=== PATIENT | female | born 1995 | race Two or more races ===

== ENCOUNTER → 2019-05-11 | Outpatient (CLI) | payer OTHER ==
[2019-05-11 10:46] LABS: ABSOLUTE LYMPHOCYTES (AUTO) 1.3 10^3/uL (0.5-4.7); ABSOLUTE MONOCYTES (AUTO) 0.4 10^3/uL (0.1-1.4); ABSOLUTE NEUT (AUTO) 4.5 10^3/uL (1.7-8.2); BASOPHILS % (AUTO) 0.5 % (0-2); EOSINOPHILS % (AUTO) 0.8 % (0-6); HEMATOCRIT 43.5 % (36.0-47.0); HEMOGLOBIN 14.9 g/dL (12.0-15.5); LYMPHOCYTES % (AUTO) 20.1 % (13-45); MEAN CORPUSCULAR HEMOGLOBIN 31.1 pg (27.0-33.4); MEAN CORPUSCULAR HGB CONC 34.2 g/dL (32.0-36.0); MEAN CORPUSCULAR VOLUME 91 fl (80-97); MONOCYTES % (AUTO) 6.5 % (3-13); PLATELET COUNT 246 10^3/uL (150-450); RED CELL DISTRIBUTION WIDTH 12.6 % (11.5-14.0); SEGMENTED NEUTROPHILS % (AUTO) 72.1 % (42-78); TOTAL CELLS COUNTED % (AUTO) 100 %; WHITE BLOOD COUNT 6.3 10^3/uL (4.0-10.5)
[2019-05-11 10:57] LABS: ALANINE AMINOTRANSFERASE 26 U/L (9-52); ALBUMIN 4.4 g/dL (3.5-5.0); ALKALINE PHOSPHATASE 56 U/L (38-126); ANION GAP 9 (5-19); ASPARTATE AMINO TRANSFERASE 22 U/L (14-36); BILIRUBIN,DIRECT 0.1 mg/dL (0.0-0.4); BILIRUBIN,TOTAL 0.4 mg/dL (0.2-1.3); BLOOD UREA NITROGEN 7 mg/dL (7-20); CALCIUM 9.5 mg/dL (8.4-10.2); CARBON DIOXIDE 26 mmol/L (22-30); CHLORIDE 103 mmol/L (98-107); CHOLESTEROL 173.42 mg/dL (0-200); GLUCOSE 93 mg/dL (75-110); POTASSIUM 4.2 mmol/L (3.6-5.0); TOTAL PROTEIN 7.7 g/dL (6.3-8.2); TRIGLYCERIDES 74 mg/dL (<150)
[2019-05-11 11:07] LABS: DIRECT LDL 96 mg/dL (<100)
[2019-05-11 11:12] LABS: FREE T4 (FREE THYROXINE) 1.27 ng/dL (0.78-2.19)
[2019-05-11 11:26] LABS: THYROID STIMULATING HORMONE 0.94 uIU/mL (0.47-4.68)
== END ==
LOC: LAB 10:22
PROVIDERS: ATTEND Physician Assistant
DX: Z79.899 Other long term (current) drug therapy (principal)
CPT/HCPCS: 36415; 80053; 80061; 82306; 84439; 84443; 85025

== ENCOUNTER 2019-05-16 11:50 | Emergency (ER) | payer OTHER ==
[2019-05-16] MEDS ORDERED: LORAZEPAM 1 MG TABLET PO ONE (12:12)
--- NOTE | 2019-05-16 12:15 | ER Document Report ---
ED Medical Screen (RME) - General Chief Complaint: Palpitations Stated Complaint: SHORTNESS OF BREATH Time Seen by Provider: 05/16/19 12:07 Primary Care Provider: DAVID ESPARZA PA-C [Primary Care Provider] - Follow up as needed TRAVEL OUTSIDE OF THE [place] IN LAST 30 DAYS: No - HPI Notes: 05/16/19 12:13 Patient is a 24-year-old female with no significant past medical history aside from her bleeding that she may have anxiety and depression who presents complaining of feeling palpitations over the past week that have increased today. Patient states that she started having some chest pressure in the midsternal area as well that does not radiate. Pt has associated sob as well. Patient states that after her heart started racing she started to become very anxious and emotional. Patient does admit to oral control pills. Denies any prolonged immobilization, distance travel, recent surgery/trauma, personal cancer history, smoking, or previous DVT/PE. Denies [place], fever, neck pain, URI, n/v/d, Abd pain, dysuria, back pain, or rash. I have treated and performed a rapid initial assessment of this patient. A comprehensive ED assessment and evaluation of the patient, analysis of test results and completion of medical decision making process will be conducted by additional ED providers. PHYSICAL EXAMINATION: GENERAL: Well-appearing, well-nourished and in no acute distress. A&Ox4. Answers questions appropriately. LUNGS: Breath sounds clear to auscultation bilaterally and equal. No wheezes rales or rhonchi. HEART: Regular rate and rhythm without murmurs, rubs, gallops. Extremities: No cyanosis, clubbing, or edema b/l. Rick negative bilaterally. No lower extremity asymmetry. NEUROLOGICAL: Normal speech, normal gait. PSYCH: Anxious and tearful - Related Data Allergies/Adverse Reactions: azithromycin [From Zithromax] Allergy (Verified 05/16/19 12:04) codeine Allergy (Verified 05/16/19 12:04) Penicillins Allergy (Verified 05/16/19 12:04) Physical Exam - Vital signs Vitals: Temp Pulse Resp BP Pulse Ox 98.6 F 113 H 18 120/83 100 05/16/19 11:58 05/16/19 11:58 05/16/19 11:58 05/16/19 11:58 05/16/19 11:58 Course - Vital Signs Vital signs: Temp Pulse Resp BP Pulse Ox 98.6 F 113 H 18 120/83 100 05/16/19 11:58 05/16/19 11:58 05/16/19 11:58 05/16/19 11:58 05/16/19 11:58 Doctor's Discharge - Discharge Referrals: DAVID ESPARZA PA-C [Primary Care Provider] - Follow up as needed
[2019-05-16 12:48] LABS: ABSOLUTE LYMPHOCYTES (AUTO) 1.7 10^3/uL (0.5-4.7); ABSOLUTE MONOCYTES (AUTO) 0.4 10^3/uL (0.1-1.4); ABSOLUTE NEUT (AUTO) 6.4 10^3/uL (1.7-8.2); BASOPHILS % (AUTO) 0.4 % (0-2); EOSINOPHILS % (AUTO) 0.4 % (0-6); HEMOGLOBIN 15.2 g/dL (12.0-15.5); LYMPHOCYTES % (AUTO) 19.5 % (13-45); MEAN CORPUSCULAR HEMOGLOBIN 30.8 pg (27.0-33.4); MEAN CORPUSCULAR HGB CONC 33.8 g/dL (32.0-36.0); MEAN CORPUSCULAR VOLUME 91 fl (80-97); MONOCYTES % (AUTO) 4.2 % (3-13); PLATELET COUNT 312 10^3/uL (150-450); RED BLOOD COUNT 4.92 10^6/uL (3.72-5.28); RED CELL DISTRIBUTION WIDTH 12.4 % (11.5-14.0); SEGMENTED NEUTROPHILS % (AUTO) 75.5 % (42-78); TOTAL CELLS COUNTED % (AUTO) 100 %; WHITE BLOOD COUNT 8.5 10^3/uL (4.0-10.5)
[2019-05-16 13:01] LABS: APPEARANCE,URINE SLIGHTLY-CLOUDY; BILIRUBIN,URINE NEGATIVE (NEGATIVE); COLOR,URINE YELLOW; GLUCOSE, URINE NEGATIVE (NEGATIVE); KETONES,URINE 80 mg/dL (NEGATIVE); LEUKOCYTE ESTERASE,URINE NEGATIVE (NEGATIVE); NITRITE,URINE NEGATIVE (NEGATIVE); PROTEIN,URINE NEGATIVE (NEGATIVE); URINE SPECIFIC GRAVITY 1.019; UROBILINOGEN,URINE NEGATIVE mg/dL (<2.0)
--- NOTE | 2019-05-16 13:18 | RADIOLOGY REPORT (SQ) ---
EXAM DESCRIPTION: CHEST 2 VIEWS COMPLETED DATE/TIME: 05/16/2019 12:59 pm REASON FOR STUDY: palp, sob, cp COMPARISON: None. EXAM PARAMETERS: NUMBER OF VIEWS: two views TECHNIQUE: Digital Frontal and Lateral radiographic views of the chest acquired. RADIATION DOSE: NA LIMITATIONS: none FINDINGS: LUNGS AND PLEURA: No opacities, masses or pneumothorax. No pleural effusion. MEDIASTINUM AND HILAR STRUCTURES: No masses or contour abnormalities. HEART AND VASCULAR STRUCTURES: Heart normal size. No evidence for failure. BONES: No acute findings. HARDWARE: None in the chest. OTHER: No other significant finding. IMPRESSION: NO ACUTE RADIOGRAPHIC FINDING IN THE CHEST. TECHNICAL DOCUMENTATION: JOB ID: [id number] [facility]- All Rights Reserved Reading location - IP/workstation name: [email or web address]
[2019-05-16 14:02] LABS: ALANINE AMINOTRANSFERASE 24 U/L (9-52); ALBUMIN 4.6 g/dL (3.5-5.0); ALKALINE PHOSPHATASE 59 U/L (38-126); ANION GAP 11 (5-19); ASPARTATE AMINO TRANSFERASE 24 U/L (14-36); BILIRUBIN,DIRECT 0.2 mg/dL (0.0-0.4); BILIRUBIN,TOTAL 0.5 mg/dL (0.2-1.3); BLOOD UREA NITROGEN 7 mg/dL (7-20); CALCIUM 9.9 mg/dL (8.4-10.2); CARBON DIOXIDE 23 mmol/L (22-30); CHLORIDE 104 mmol/L (98-107); GLUCOSE 84 mg/dL (75-110); TOTAL PROTEIN 7.8 g/dL (6.3-8.2)
[2019-05-16 14:10] LABS: POTASSIUM 4.4 mmol/L (3.6-5.0)
[2019-05-16] MEDS ORDERED: NORMAL SALINE 1000 ML 1,000 ML IV ONE (14:33)
--- NOTE | 2019-05-16 15:07 | ER Document Report ---
ED General - General Chief Complaint: Palpitations Stated Complaint: SHORTNESS OF BREATH Time Seen by Provider: 05/16/19 12:07 Primary Care Provider: DAVID ESPARZA PA-C [PHYSICIAN [employer] AND SK[employer] COLORER] - Follow up as needed Notes: Patient is a 24-year-old female presents to the emergency department with a chief complaint of chest palpitations. Patient states she woke up around 10 AM this morning and felt short of breath. Patient states that at that time she felt like her heart was beating fast. Patient states she felt anxious. Patient states this morning when she was having the symptoms she felt a squeezing to the left side of her chest. Patient states she has been asked bearing seen increased stress and feelings of anxiousness over the past week. Patient also reports dizziness and generalized weakness. Patient states she was recently treated for bacterial vaginosis by [facility] and was placed on clindamycin which she did finish over the weekend. Patient states she continues to have vaginal itching as well as a white vaginal discharge with an odor. Patient states she has had a decreased appetite. Patient denies abdominal pain, nausea, vomiting, diarrhea or fever. TRAVEL OUTSIDE OF THE [place] IN LAST 30 DAYS: No - Related Data Allergies/Adverse Reactions: azithromycin [From Zithromax] Allergy (Verified 05/16/19 12:04) codeine Allergy (Verified 05/16/19 12:04) Penicillins Allergy (Verified 05/16/19 12:04) Past Medical History - General Information source: Patient - Social History Smoking Status: Never Smoker Frequency of alcohol use: None Drug Abuse: None Lives with: Spouse/Significant other Family History: None Patient has suicidal ideation: No Patient has homicidal ideation: No - Past Medical History Cardiac Medical History: Reports: None Pulmonary Medical History: Reports: None EENT Medical History: Reports: None Neurological Medical History: Reports: None Endocrine Medical History: Reports: None Renal/ Medical History: Reports: Hx Kidney Stones. Denies: Hx Peritoneal Dialysis Malignancy Medical History: Reports: None GI Medical History: Reports: None Musculoskeletal Medical History: Reports None Skin Medical History: Reports None Psychiatric Medical History: Reports: None Traumatic Medical History: Reports: None Infectious Medical History: Reports: None Surgical Hx: Negative Review of Systems - Review of Systems Constitutional: See HPI EENT: No symptoms reported Cardiovascular: See HPI Respiratory: See HPI Gastrointestinal: No symptoms reported Genitourinary: No symptoms reported Female Genitourinary: See HPI Musculoskeletal: No symptoms reported Skin: No symptoms reported Hematologic/Lymphatic: No symptoms reported Neurological/Psychological: No symptoms reported Physical Exam - Vital signs Vitals: Temp Pulse Resp BP Pulse Ox 98.6 F 113 H 18 120/83 100 05/16/19 11:58 05/16/19 11:58 05/16/19 11:58 05/16/19 11:58 05/16/19 11:58 Interpretation: Tachycardic - Notes Notes: GENERAL: Well-appearing, well-nourished and in no acute distress. HEAD: Atraumatic, normocephalic. EYES: Pupils equal round and reactive to light, extraocular movements intact, sclera anicteric, conjunctiva are normal. ENT: TMs normal, nares patent, oropharynx clear without exudates. Moist mucous membranes. NECK: Normal range of motion, supple without lymphadenopathy or JVD. LUNGS: Breath sounds clear to auscultation bilaterally and equal. No wheezes rales or rhonchi. HEART: Regular rate and rhythm without murmurs, rubs or gallops. Non- reproducible chest pain. ABDOMEN: Soft, nontender, normoactive bowel sounds. No guarding, no rebound. No masses appreciated. BACK: No cervical, thoracic, lumbar midline tenderness. No saddle anesthesia, normal distal neurovascular exam. No CVA tenderness. GENITOURINARY: Deferred. EXTREMITIES: Normal range of motion, no pitting or edema. No clubbing or cyanosis. NEUROLOGICAL: Cranial nerves II through XII grossly intact. Normal speech, normal gait. PSYCH: Normal mood, normal affect. SKIN: Warm, Dry, normal turgor, no rashes or lesions noted. Course - Re-evaluation Re-evalutation: 05/16/19 15:04 Upon initial examination patient is resting comfortably on stretcher. Patient reports she is not currently having any shortness of breath, chest pain or palpitations. Will obtain orthostatic vital signs and perform a pelvic examination as the patient continues to have vaginal discharge. We will give IV hydration. Patient has had tachycardia as well as chest pain. Patient is on oral control pills. I will add on a d-dimer. 05/16/19 17:05 Patient d-dimer came back as negative. I will plan to discharge the patient as her lab results were unremarkable and she has been asymptomatic since arriving to the emergency department. Patient states that when she gets up and moves around she feels like her heart rate goes up. Patient did reposition herself on the stretcher and her heart rate increased to 127. Patient states she has been battling a lot of anxiety. Patient states she feels like she may have had a panic attack earlier this morning. Patient states she gets a lot of anxiety when going out in public. Patient states she does have a follow-up with her primary care physician on Monday. I did inform the patient to follow-up with her primary care physician as she may require a cardiac follow-up and a continuous electronic device monitor to be placed for 24 to 48 hours to evaluate for her palpitations. Patient given strict return precautions. 05/16/19 19:53 Gonorrhea and Chlamydia cultures were negative. Patient does not require antibiotics for this. - Vital Signs Vital signs: Temp Pulse Resp BP Pulse Ox 98.6 F 113 H 22 H 105/78 99 05/16/19 11:58 05/16/19 11:58 05/16/19 18:01 05/16/19 18:00 05/16/19 18:01 - Laboratory Result Diagrams: 05/16/19 12:31 05/16/19 13:33 Laboratory results interpreted by me: 05/16/19 12:31 Urine Ketones 80 H Urine Blood SMALL H 05/16/19 15:05 Laboratory 05/16/19 05/16/19 05/16/19 12:31 12:31 12:31 WBC 8.5 RBC 4.92 Hgb 15.2 Hct 45.0 MCV 91 MCH 30.8 MCHC 33.8 RDW 12.4 Plt Count 312 Seg Neutrophils % 75.5 Lymphocytes % 19.5 Monocytes % 4.2 Eosinophils % 0.4 Basophils % 0.4 Absolute Neutrophils 6.4 Absolute Lymphocytes 1.7 Absolute Monocytes 0.4 Absolute Eosinophils 0.0 Absolute Basophils 0.0 Sodium Cancelled Potassium Cancelled Chloride Cancelled Carbon Dioxide Cancelled Anion Gap Cancelled BUN Cancelled Creatinine Cancelled Est GFR ( Amer) Cancelled Est GFR (Non-Af Amer) Cancelled Glucose Cancelled Calcium Cancelled Magnesium Cancelled Total Bilirubin Cancelled Direct Bilirubin Cancelled Neonat Total Bilirubin Cancelled Neonat Direct Bilirubin Cancelled Neonat Indirect Bili Cancelled AST Cancelled ALT Cancelled Alkaline Phosphatase Cancelled Troponin I Cancelled Total Protein Cancelled Albumin Cancelled TSH Urine Color Urine Appearance Urine pH Ur Specific Freeman Urine Protein Urine Glucose (UA) Urine Ketones Urine Blood Urine Nitrite Urine Bilirubin Urine Urobilinogen Ur Leukocyte Esterase Urine WBC (Auto) Urine RBC (Auto) Urine Bacteria (Auto) Squamous Epi Cells Auto Urine Mucus (Auto) Urine Ascorbic Acid Urine HCG, Qual 05/16/19 05/16/19 05/16/19 12:31 12:31 13:33 WBC RBC Hgb Hct MCV MCH MCHC RDW Plt Count Seg Neutrophils % Lymphocytes % Monocytes % Eosinophils % Basophils % Absolute Neutrophils Absolute Lymphocytes Absolute Monocytes Absolute Eosinophils Absolute Basophils Sodium 138.0 Potassium 4.4 Chloride 104 Carbon Dioxide 23 Anion Gap 11 BUN 7 Creatinine 0.68 Est GFR ( Amer) > 60 Est GFR (Non-Af Amer) > 60 Glucose 84 Calcium 9.9 Magnesium 1.8 Total Bilirubin 0.5 Direct Bilirubin 0.2 Neonat Total Bilirubin Not Reportable Neonat Direct Bilirubin Not Reportable Neonat Indirect Bili Not Reportable AST 24 ALT 24 Alkaline Phosphatase 59 Troponin I Total Protein 7.8 Albumin 4.6 TSH Cancelled Urine Color YELLOW Urine Appearance SLIGHTLY-CLOUDY Urine pH 6.0 Ur Specific [place] 1.019 Urine Protein NEGATIVE Urine Glucose (UA) NEGATIVE Urine Ketones 80 H Urine Blood SMALL H Urine Nitrite NEGATIVE Urine Bilirubin NEGATIVE Urine Urobilinogen NEGATIVE Ur Leukocyte Esterase NEGATIVE Urine WBC (Auto) 1 Urine RBC (Auto) 8 Urine Bacteria (Auto) 1+ Squamous Epi Cells Auto 1 Urine Mucus (Auto) MANY Urine Ascorbic Acid NEGATIVE Urine HCG, Qual NEGATIVE 05/16/19 05/16/19 13:33 13:33 WBC RBC Hgb Hct MCV MCH MCHC RDW Plt Count Seg Neutrophils % Lymphocytes % Monocytes % Eosinophils % Basophils % Absolute Neutrophils Absolute Lymphocytes Absolute Monocytes Absolute Eosinophils Absolute Basophils Sodium Potassium Chloride Carbon Dioxide Anion Gap BUN Creatinine Est GFR ( Amer) Est GFR (Non-Af Amer) Glucose Calcium Magnesium Total Bilirubin Direct Bilirubin Neonat Total Bilirubin Neonat Direct Bilirubin Neonat Indirect Bili AST ALT Alkaline Phosphatase Troponin I < 0.012 Total Protein Albumin TSH 0.70 Urine Color Urine Appearance Urine pH Ur Specific Freeman Urine Protein Urine Glucose (UA) Urine Ketones Urine Blood Urine Nitrite Urine Bilirubin Urine Urobilinogen Ur Leukocyte Esterase Urine WBC (Auto) Urine RBC (Auto) Urine Bacteria (Auto) Squamous Epi Cells Auto Urine Mucus (Auto) Urine Ascorbic Acid Urine HCG, Qual - Diagnostic Test Radiology reviewed: Reports reviewed - EKG Interpretation by Me Additional EKG results interpreted by me: 05/16/19 16:41 EKG shows a sinus rhythm with a heart rate of 83. VT interval is 128, QT 348, QTc 409. Patient has a normal axis deviation without ectopy or ST segment kyaw nges in consecutive leads. There is no EKG for comparison. Procedures - Pelvic Exam Pelvic exam Time completed: 16:00 Cultures obtained: Yes Wet prep obtained: Yes Bimanual exam performed: Yes - CM tenderness Witnessed by: David SIN Notes: 05/16/19 External genitalia slightly erythematous without lesions. During the insertion of the speculum patient did experience some discomfort. Patient did have white discharge noted throughout the vaginal vault. I was able to observe the cervix was was unremarkable. Specimens obtained. Discharge - Discharge Clinical Impression: Bacterial vaginosis, Tachycardia, Palpitations, Pelvic pain Condition: Stable Disposition: HOME, SELF-CARE Instructions: Palpitations (Irregular or Rapid Heartrate) ([facility]) Additional Instructions: Today you are seen in the emergency department for chest pain and palpitations. Your EKG was unremarkable and showed a regular rhythm. We did obtain lab work which did not show infection, anemia, alteration in your electrolytes, abnormal thyroid studies, urinary tract infection or an abnormality of the chest x-ray. You do have bacterial vaginosis which is a pelvic infection. I will place you on Flagyl which is an antibiotic that treats this. Do not drink alcohol while on this medication as it can make you extremely ill. Please follow-up with your primary care physician as you may need to have a cardiology follow-up regarding these palpitations. You may require wearing a cardiac monitoring device over a 24 to 48-hour time frame depending on your cardiology recommendations. Please avoid caffeine, nicotine, alcohol, [id number] decongestant or cold pills, diet pills as these can cause palpitations or make them worse. Please rest and drink plenty of fluids to stay hydrated. Please return to the emergency department if you have persistent lightheadedness, shortness of breath, chest pain swelling of the ankles or any concerning signs or symptoms. Palpitations (Irregular/Rapid Heartrate) Irregular or rapid heartbeat is called "palpitation." To diagnose the cause of palpitation, we have to "catch it in the act" with an EKG. Sinus Tachycardia: This is a rapid (but NORMAL) rhythm that can be due to fever, pain, anxiety, lack of sleep, over-exertion, or drugs. Cold medications, caffeine, and diet pills are particularly likely to cause tachycardia. Usually, all that's required is rest, reassurance, and avoiding caffeine, alcohol, nicotine, and unnecessary medicines. Paroxysmal Atrial Tachycardia (PAT): This abnormally rapid heartbeat is caused by a "short circuit" in the electrical system of the heart. It is not dangerous, unless other heart disease is present. These attacks of PAT may occur occasionally for years. Medication is available for treatment. Paroxysmal Atrial Fibrillation or Atrial Flutter: This is irregular electrical activity in the upper heart chamber. These abnormal rhythms often occur with valve disease or in hearts damaged by hardening of the arteries. These rhythms usually require further testing, for example a cardiac echo. Premature Beats: Extra beats occur more commonly after caffeine, nicotine, alcohol, cold pills, diet pills. Emotional stress or fatigue also provoke them. Extra beats are only dangerous when heart disease is present. They usually need no treatment. If they're frequent, or if evidence of heart disease develops, medication can be given to suppress them. If we were unable to "catch" the palpitations on EKG, you should try to get an EKG immediately if the symptoms begin again. Contact the physician at once if you develop persistent lightheadedness, shortness of breath, chest pain, or swelling of the ankles. Vaginosis, Bacterial Your exam shows you have bacterial vaginosis. This condition is due to an overgrowth of bacteria in the vagina. Symptoms may include vaginal itching or pain, a smelly discharge, and sometimes burning with urination. Normally this is not transmitted by sexual contact. Vaginosis can be treated with oral or topical antibiotics. Metronidazole (Flagyl) pills are usually effective. Topical vaginal creams include Cleocin and Metro-Gel. You should avoid sexual contact until your symptoms are all better. Call the doctor if you develop pelvic pain, fever, or problems with urination, or if you don't improve as expected. Prescriptions: Metronidazole [Flagyl 500 mg Tablet] 500 mg PO BID 7 Days #14 tablet Referrals: DAVID ESPARZA PA-C [PHYSICIAN [employer] AND SKINS [employer]ORER] - Follow up as needed
[2019-05-16 16:15] LABS: BACTERIA (WET MOUNT) 3+ BACTERIA SEEN; EPITHELIALS (WET MOUNT) 3+ EPITHELIALS SEEN; RBCS (WET MOUNT) NO RBCS SEEN; T.VAGINALIS (WET MOUNT) NO TRICHOMONAS SEEN; WBCS (WET MOUNT) 1+ WBCS SEEN; YEAST (WET MOUNT) NO YEAST SEEN
[2019-05-16 17:54] LABS: CHLAM PCR NOT DETECTED (NOT DETECT)
[2019-05-16 18:12] VITALS: BP 105/78
--- NOTE | 2019-05-16 18:18 | EKG REPORT ---
SEVERITY:- NORMAL ECG - SINUS RHYTHM : Confirmed by: Renee Reece MD 16-May-2019 18:17:54
== END 2019-05-16 18:33 | disposition home or self-care (01) ==
LOC: ER 11:50
DX: N76.0 Acute vaginitis (principal); B96.89 Other specified bacterial agents as the cause of diseases classified elsewhere; R00.2 Palpitations; R00.0 Tachycardia, unspecified; R10.2 Pelvic and perineal pain; Z88.6 Allergy status to analgesic agent; Z88.0 Allergy status to penicillin
CPT/HCPCS: 93005; 99285; 96360; 96361; 36415; 87210; 83735; 84443; 85025; 81025; 80053; 81001; 84484; 85379; 87491; 87591; 71046; 93010; J7030

== ENCOUNTER 2019-11-14 21:23 | Emergency (ER) | payer OTHER ==
[2019-11-15 00:02] LABS: ABSOLUTE LYMPHOCYTES (AUTO) 1.8 10^3/uL (0.5-4.7); ABSOLUTE MONOCYTES (AUTO) 0.5 10^3/uL (0.1-1.4); ABSOLUTE NEUT (AUTO) 4.9 10^3/uL (1.7-8.2); BASOPHILS % (AUTO) 0.6 % (0-2); EOSINOPHILS % (AUTO) 0.1 % (0-6); HEMATOCRIT 47.1 % (36.0-47.0); HEMOGLOBIN 15.9 g/dL (12.0-15.5); MEAN CORPUSCULAR HGB CONC 33.8 g/dL (32.0-36.0); MEAN CORPUSCULAR VOLUME 92 fl (80-97); MONOCYTES % (AUTO) 6.3 % (3-13); PLATELET COUNT 257 10^3/uL (150-450); RED BLOOD COUNT 5.14 10^6/uL (3.72-5.28); RED CELL DISTRIBUTION WIDTH 12.4 % (11.5-14.0); TOTAL CELLS COUNTED % (AUTO) 100 %; WHITE BLOOD COUNT 7.3 10^3/uL (4.0-10.5)
[2019-11-15 00:03] LABS: APPEARANCE,URINE CLEAR; BILIRUBIN,URINE NEGATIVE (NEGATIVE); COLOR,URINE YELLOW; GLUCOSE, URINE NEGATIVE (NEGATIVE); KETONES,URINE NEGATIVE (NEGATIVE); LEUKOCYTE ESTERASE,URINE NEGATIVE (NEGATIVE); NITRITE,URINE NEGATIVE (NEGATIVE); PROTEIN,URINE NEGATIVE (NEGATIVE); URINE SPECIFIC GRAVITY 1.005; UROBILINOGEN,URINE NEGATIVE mg/dL (<2.0)
[2019-11-15 00:08] LABS: ALKALINE PHOSPHATASE 68 U/L (38-126); ANION GAP 11 (5-19); ASPARTATE AMINO TRANSFERASE 27 U/L (14-36); BILIRUBIN,DIRECT 0.3 mg/dL (0.0-0.4); BILIRUBIN,TOTAL 0.5 mg/dL (0.2-1.3); BLOOD UREA NITROGEN 11 mg/dL (7-20); CALCIUM 10.1 mg/dL (8.4-10.2); CARBON DIOXIDE 26 mmol/L (22-30); CHLORIDE 103 mmol/L (98-107); CREATINE KINASE 75 U/L (30-135); GLUCOSE 93 mg/dL (75-110); POTASSIUM 3.9 mmol/L (3.6-5.0); TOTAL PROTEIN 8.7 g/dL (6.3-8.2)
[2019-11-15 00:19] LABS: CREATINE KINASE MB 0.31 ng/mL (<4.55)
[2019-11-15 00:20] LABS: TROPONIN I < 0.012 ng/mL
--- NOTE | 2019-11-15 01:52 | ER Document Report ---
ED General - General Chief Complaint: Chest Pain Stated Complaint: CHEST PAINS Time Seen by Provider: 11/15/19 01:52 Primary Care Provider: ISAÍAS RASMUSSEN MD [Primary Care Provider] - Follow up as needed Mode of Arrival: Ambulatory Information source: Patient TRAVEL OUTSIDE OF THE [place] IN LAST 30 DAYS: No - HPI Onset: Yesterday - at 2PM Onset/Duration: Gradual Quality of pain: No pain Severity: Moderate Pain Level: 3 Associated symptoms: Chest pain, Shortness of breath Exacerbated by: Denies Relieved by: Denies Similar symptoms previously: Yes - couple times Recently seen / treated by doctor: No Notes: 24 year old female with a history of GERD and Anxiety here for off and on chest pain since yesterday around 2pm. The patient says she has some mild shortness of breath with the chest pain and some mild muscle/chest wall pain. The patient denies fevers, chills, sweats, nausea, vomiting, cough. The patient says the pain feels like it goes to both shoulders at times. She is not sure of anything that can make it come or go. - Related Data Allergies/Adverse Reactions: azithromycin [From Zithromax] Allergy (Verified 05/16/19 12:04) codeine Allergy (Verified 05/16/19 12:04) Penicillins Allergy (Verified 05/16/19 12:04) Home Medications: control. fish oil supplements. CBD oil Past Medical History - General Information source: Patient - Social History Smoking Status: Never Smoker Frequency of alcohol use: None Drug Abuse: None Family History: None Patient has suicidal ideation: No Patient has homicidal ideation: No - Past Medical History Cardiac Medical History: Reports: None Pulmonary Medical History: Reports: None EENT Medical History: Reports: None Neurological Medical History: Reports: None Endocrine Medical History: Reports: None Renal/ Medical History: Reports: None, Hx Kidney Stones. Denies: Hx Peritoneal Dialysis Malignancy Medical History: Reports: None GI Medical History: Reports: Hx Gastroesophageal Reflux Disease Musculoskeletal Medical History: Reports None Skin Medical History: Reports None Psychiatric Medical History: Reports: Hx Anxiety Past Surgical History: Reports: Hx Oral Surgery - wisdom teeth Review of Systems - Review of Systems Constitutional: No symptoms reported EENT: No symptoms reported Cardiovascular: Chest pain Respiratory: Short of breath Gastrointestinal: No symptoms reported Genitourinary: No symptoms reported Female Genitourinary: No symptoms reported Musculoskeletal: Other - chest wall pain Skin: No symptoms reported Hematologic/Lymphatic: No symptoms reported Neurological/Psychological: No symptoms reported -: Yes All other systems reviewed and negative Physical Exam - Vital signs Vitals: Temp Pulse Resp BP Pulse Ox 98.9 F 90 20 115/71 100 11/14/19 22:23 11/14/19 22:23 11/14/19 22:23 11/14/19 22:23 11/14/19 22:23 - Notes Notes: GENERAL: Well-appearing, well-nourished and in no acute distress. HEAD: Atraumatic, normocephalic. EYES: Pupils equal round and reactive to light, extraocular movements intact, sclera anicteric, conjunctiva are normal. ENT: TMs normal, nares patent, oropharynx clear without exudates. Moist mucous membranes. NECK: Normal range of motion, supple without lymphadenopathy or JVD. LUNGS: Breath sounds clear to auscultation bilaterally and equal. No wheezes rales or rhonchi. HEART: Regular rate and rhythm without murmurs, rubs or gallops. ABDOMEN: Soft, nontender, normoactive bowel sounds. No guarding, no rebound. No masses appreciated. EXTREMITIES: Normal range of motion, no pitting or edema. No clubbing or cyanosis. NEUROLOGICAL: Cranial nerves II through XII grossly intact. Normal speech, normal gait. PSYCH: Normal mood, normal affect. SKIN: Warm, Dry, normal turgor, no rashes or lesions noted. Course - Re-evaluation Re-evalutation: 11/15/19 02:07 The patient likely is having chest pain from anxiety of GERD. She is very low risk for ACS (she has no risk factors and is 24 years old) or PE (she is PERC negative). Patient given a GI Cocktail and she was told to follow up with her PCP. Labs, EKG, Chest Xray Unremarkable. - Vital Signs Vital signs: Temp Pulse Resp BP Pulse Ox 98.9 F 90 20 115/71 100 11/14/19 22:23 11/14/19 22:23 11/14/19 22:23 11/14/19 22:23 11/14/19 22:23 - Laboratory Result Diagrams: 11/14/19 23:40 11/14/19 23:40 Laboratory results interpreted by me: 11/14/19 11/14/19 23:40 23:40 Hgb 15.9 H Hct 47.1 H Total Protein 8.7 H - Diagnostic Test Radiology reviewed: Image reviewed Radiology results interpreted by me: 11/15/19 02:08 No acute process on my read. - EKG Interpretation by Me EKG shows normal: Sinus rhythm, [place], Intervals, QRS Complexes Rate: Normal Rhythm: NSR Discharge - Discharge Clinical Impression: Anxiety Chest pain Qualifiers: Chest pain type: unspecified Qualified Code(s): R07.9 - Chest pain, unspecified Condition: Stable Disposition: HOME, SELF-CARE Instructions: Chest Pain of Unclear Cause ([facility]), Anxiety ([facility]) Additional Instructions: Follow up with your primary care doctor. If you dont have a primary care doctor, follow up with the one listed. Use over the counter [id number] medications to see if this helps your symptoms. Referrals: ISAÍAS RASMUSSEN MD [Primary Care Provider] - Follow up as needed
[2019-11-15] MEDS ORDERED: METOCLOPRAMIDE HCL ORAL SOLN 10 MG/10 ML UDCUP PO ONE (02:09)
[2019-11-15] MEDS ORDERED: LIDOCAINE 2% VISCOUS SOLN 15 ML UDCUP PO ONE (02:09)
[2019-11-15] MEDS ORDERED: MAG HYDROX/AL HYDROX/SIMETH SUSP 30 ML UDCUP PO ONE (02:09)
--- NOTE | 2019-11-15 02:52 | RADIOLOGY REPORT (SQ) ---
EXAM DESCRIPTION: XR CHEST 2 VIEWS COMPLETED DATE/TME: 11/15/2019 01:52 CLINICAL HISTORY: 24 years Female, chest pain COMPARISON: None. NUMBER OF VIEWS/TECHNIQUE: 2, Frontal, Lateral FINDINGS: Increased lung volume, clear parenchyma, normal cardiac silhouette, and intact bony thorax. IMPRESSION: No acute cardiopulmonary findings.
[2019-11-15 06:41] VITALS: BP 112/75
--- NOTE | 2019-11-15 13:01 | EKG REPORT ---
SEVERITY:- NORMAL ECG - SINUS RHYTHM : Confirmed by: Beatriz Crews 15-Nov-2019 13:00:47
== END 2019-11-15 06:30 | disposition home or self-care (01) ==
LOC: ER 21:23
DX: F41.9 Anxiety disorder, unspecified (principal); R07.9 Chest pain, unspecified; R06.02 Shortness of breath; Z88.3 Allergy status to other anti-infective agents; Z88.6 Allergy status to analgesic agent; Z87.442 Personal history of urinary calculi; Z88.0 Allergy status to penicillin; Z79.3 Long term (current) use of hormonal contraceptives
CPT/HCPCS: 93005; 99285; 36415; 82553; 82550; 85025; 80053; 81001; 84484; 71046; 93010; J3490

== ENCOUNTER → 2019-12-03 | Outpatient (CLI) | payer OTHER ==
[2019-12-03 16:52] LABS: AMORPHOUS SEDIMENT,URINE TRACE /HPF; APPEARANCE,URINE CLOUDY; BILIRUBIN,URINE NEGATIVE (NEGATIVE); COLOR,URINE YELLOW; GLUCOSE, URINE NEGATIVE (NEGATIVE); KETONES,URINE NEGATIVE (NEGATIVE); LEUKOCYTE ESTERASE,URINE NEGATIVE (NEGATIVE); NITRITE,URINE NEGATIVE (NEGATIVE); PROTEIN,URINE NEGATIVE (NEGATIVE); URINE SPECIFIC GRAVITY 1.017; UROBILINOGEN,URINE NEGATIVE mg/dL (<2.0)
[2019-12-03 17:13] LABS: FREE T3 2.76 pg/mL (2.77-5.27); FREE T4 (FREE THYROXINE) 0.96 ng/dL (0.78-2.19)
[2019-12-03 17:27] LABS: THYROID STIMULATING HORMONE 1.01 uIU/mL (0.47-4.68)
[2019-12-03 17:58] LABS: ALBUMIN 3.9 g/dL (3.5-5.0); ALKALINE PHOSPHATASE 50 U/L (38-126); ANION GAP 8 (5-19); ASPARTATE AMINO TRANSFERASE 22 U/L (14-36); BILIRUBIN,TOTAL 0.3 mg/dL (0.2-1.3); BLOOD UREA NITROGEN 8 mg/dL (7-20); CALCIUM 9.1 mg/dL (8.4-10.2); CARBON DIOXIDE 26 mmol/L (22-30); CHLORIDE 104 mmol/L (98-107); GLUCOSE 100 mg/dL (75-110); POTASSIUM 4.3 mmol/L (3.6-5.0); TOTAL PROTEIN 6.9 g/dL (6.3-8.2)
== END ==
LOC: OD 15:56
PROVIDERS: ATTEND Registered Nurse
DX: F41.1 Generalized anxiety disorder (principal)
CPT/HCPCS: 36415; 80053; 81001; 84439; 84443; 84481

== ENCOUNTER → 2020-03-22 | Outpatient (CLI) | payer OTHER ==
[2020-03-22 11:59] LABS: BACTERIA (WET MOUNT) 4+ BACTERIA SEEN; EPITHELIALS (WET MOUNT) 4+ EPITHELIALS SEEN; T.VAGINALIS (WET MOUNT) NO TRICHOMONAS SEEN; WBCS (WET MOUNT) 2+ WBCS SEEN; YEAST (WET MOUNT) NO YEAST SEEN
[2020-03-22 13:19] LABS: CHLAM PCR NOT DETECTED (NOT DETECT)
== END ==
LOC: LAB 11:36
PROVIDERS: ATTEND Nurse Practitioner Acute Care
DX: N89.8 Other specified noninflammatory disorders of vagina (principal)
CPT/HCPCS: 87210; 87491; 87591

== ENCOUNTER → 2020-08-11 | Outpatient (CLI) | payer OTHER ==
--- NOTE | 2020-08-11 12:56 | WOMENS IMAGING REPORT ---
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 TECHNIQUE: Dynamic and static grayscale images acquired of the abdomen and recorded on PACS. Additio nal selected color Doppler and spectral images recorded. LIMITATIONS: None. FINDINGS: PANCREAS: No masses. Visualized pancreatic duct normal caliber. LIVER: The liver measures 14.5 cm in length, normal size. No masses. Echotexture normal. LIVER VASCULATURE: Normal directional flow of the main portal vein and hepatic veins. GALLBLADDER: No stones. The gallbladder wall measures 1.6 mm, normal wall thickness. No pericholecys tic fluid. ULTRASOUND-DETECTED WAHL'S SIGN: Negative. INTRAHEPATIC DUCTS AND COMMON DUCT: CBD measures 4.2 mm in diameter, normal. The intrahepatic ducts normal caliber. No filling defects. INFERIOR VENA CAVA: Normal flow. AORTA: No aneurysm. RIGHT KIDNEY: The right kidney measures 10.5 x 3.84.9 cm, normal size. Normal echogenicity. No franco d or suspicious masses. No hydronephrosis. No calcifications. PERITONEAL AND RIGHT PLEURAL SPACE: No ascites or effusions. OTHER: No other significant findings. IMPRESSION: 1. Examination is unremarkable sonographically. TECHNICAL DOCUMENTATION: JOB ID: [id number] [employer]- All Rights Reserved Reading location - IP/workstation name: [email or web address]
== END ==
LOC: WI 11:36
PROVIDERS: ATTEND Internal Medicine Gastroenterology
DX: R12 Heartburn (principal)
CPT/HCPCS: 76705